=== PATIENT | male | born 1980 | race Caucasian/White ===

== ENCOUNTER → 2016-11-06 | Outpatient (CLI) | payer BC ==
[~2016-11-06] MED LIST: CYCL10TA9 PO; NAPR550T PO; OXYC1TAB87 PO
--- NOTE | 2016-11-06 12:47 | Diagnostic Imaging Report ---
INDICATION: Left wrist pain. 3 views of the left wrist show no fracture, dislocation, or other acute abnormalities. IMPRESSION: Negative left wrist. Dictated by: Dictated on workstation # [id number]
== END ==
LOC: RAD 10:42
PROVIDERS: ATTEND Nurse Practitioner
DX: M25.532 Pain in left wrist (principal)
CPT/HCPCS: 73110

== ENCOUNTER → 2017-03-13 | Outpatient (CLI) | payer BC ==
--- NOTE | 2017-03-13 18:10 | Diagnostic Imaging Report ---
INDICATION: Injury to right forearm. EXAMINATION: AP and lateral views of the right forearm were obtained. FINDINGS: No fracture or acute bony abnormality is seen. IMPRESSION: Negative right forearm. Report was called to Lauren Tapia APRN at 6:06 p.m., by luis (for ) with message left on her voice mail. Dictated by: Dictated on workstation # [id number]
== END ==
LOC: RAD 17:39
PROVIDERS: ATTEND Nurse Practitioner Family
DX: S59.911A Unspecified injury of right forearm, initial encounter (principal)
CPT/HCPCS: 73090

== ENCOUNTER → 2021-03-19 | Outpatient (CLI) | payer BC | LOC: LABNPT 07:24 | PROVIDERS: ATTEND Internal Medicine | DX: R51.9 Headache, unspecified (principal); R53.83 Other fatigue; R19.7 Diarrhea, unspecified; Z20.822 Contact with and (suspected) exposure to COVID-19 | CPT/HCPCS: 87635 ==

== ENCOUNTER 2022-01-27 08:05 | Emergency (ER) | payer BC ==
[~2022-01-27] VITALS: Ht 175 cm; Wt 100.0 kg
--- NOTE | 2022-01-27 08:36 | ED GU-Male ---
General Chief Complaint: Abdominal/GI Problems Stated Complaint: LT SIDE PAIN Nursing Triage Note: PT STATES DIARRHEA AND STOMACH FLU LIKE SS FOR A COUPLE DAYS, THIS MORNING PAIN IN LT SIDE DOWN TO HIS GROIN. LOOSE STOOL THIS MORNING BUT NO URINE, DENIES URINARY SYMPTOMS. VOMITED THIS MORNING FROM THE PAIN Source: patient Exam Limitations: no limitations (MARISABEL RENTERIA) History of Present Illness Date Seen by Provider: Jan 27, 2022 Time Seen by Provider: 08:31 Initial Comments Patient is a 41 y/o M with history of cholecystectomy who presents to the ER this morning with severe left flank pain onset this morning. He reports he began having sharp constant left right flank and back pain this morning at work. He states he was walking when he almost collapsed due to the pain. He rates the pain at 10/10 and says it radiates into his left groin area. Also reports less frequent urination. Patient reports having a headache and left ear pain for the last 3-4 days. He also reports 1 episode of diarrhea last night. States he was nauseous earlier today and had 1 episode of emesis. Reports many people at work have Influenza flu. Timing/Duration: this morning Severity/Quality: severe Location: left flank Radiation: groin Modifying Factors: Improves With Movement Associated Symptoms: fever/chills, nausea/vomiting (MARISABEL RENTERIA) Allergies and Home Medications Allergies Coded Allergies: Cefaclor (Verified Allergy, Intermediate, HIVES, 01/27/13) Patient Home Medication List Home Medication List Reviewed: Yes (CARLOS ENRIQUE RENTERIAA) Hydrocodone/Acetaminophen (Hydrocodone-Acetamin 5-325 mg) 5 Mg-325 Mg Tablet, 1 TAB PO Q6H PRN for PAIN-MODERATE (5-7) Prescribed by: RORO CONNOLLY on 01/27/22 1056 Oxycodone Hcl/Acetaminophen (Endocet) 1 Tab Tablet, 0 TAB PO Q4H PRN for PAIN Prescribed by: GERMAN MIRANDA on 02/09/13 1600 Tamsulosin HCl (Flomax) 0.4 Mg Cap, 0.4 MG PO HS Prescribed by: RORO CONNOLLY on 01/27/22 1055 Review of Systems Review of Systems Constitutional: chills; No fever EENTM: ear pain (left ) Respiratory: No cough, No short of breath Gastrointestinal: diarrhea, nausea, vomiting Genitourinary: frequency (less frequent), flank pain (left) Psychiatric/Neurological: Headache ([facility],[place]) Past Rbzoadc-Hxdobv-Yhviqe Hx Patient Social History Tobacco Use?: Yes Tobacco type used: Cigarettes Smoking Status: Current Everyday Smoker Substance use?: No Alcohol Use?: Yes Alcohol type: Beer ([facility],[place]) Immunizations Up To Date Second COVID19 Vaccination Narayan: YES ([facility],[place]) Past Medical History Surgery/Hospitalization HX: IBS, GALLBLADDER Reproductive Disorders: No Sexually Transmitted Disease: No Gastroesophageal Reflux, Irritable Bowel ([facility],[place]) Physical Exam Vital Signs Vital Signs - First Documented 01/27/22 08:10 Temp 36.0 Pulse 90 Resp 20 B/P (MAP) 152/105 (121) Pulse Ox 97 O2 Delivery Room Air (RORO CONNOLLY MD) Vital Signs Capillary Refill : Less Than 3 Seconds ([facility]) Height, Weight, BMI Height: '" Weight: 198lbs. oz. 89.508980ub; 32.00 BMI Method:Stated General Appearance: WD/WN, moderate distress (patient is writhing around on bed, unable to lie still at all) Cardiovascular: regular rate, rhythm, no murmur Respiratory: chest non-tender, lungs clear, normal breath sounds, no respiratory distress, no accessory muscle use Back: CVA tenderness (L) (positive Dayday's sign) Skin: normal color, warm/dry Lymphatic: no adenopathy (cervical) ([facility],[place]) Progress/Results/Core Measures Suspected Sepsis SIRS Temperature: Pulse: 90 Respiratory Rate: 20 Blood Pressure 152 /105 Mean: 121 ([facility],[place]) Results/Orders Lab Results Laboratory Tests Test 01/27/22 08:15 01/27/22 09:42 01/27/22 10:05 Range/Units Sodium Level 139 135-145 MMOL/L Potassium Level 3.8 3.6-5.0 MMOL/L Chloride Level 108 H 98-107 MMOL/L Carbon Dioxide Level 21 21-32 MMOL/L Anion Gap 10 5-14 MMOL/L Blood Urea Nitrogen 13 7-18 MG/DL Creatinine 1.06 0.60-1.30 MG/DL Estimat Glomerular Filtration Rate 90 BUN/Creatinine Ratio 12 Glucose Level 173 H 70-105 MG/DL Calcium Level 9.0 8.5-10.1 MG/DL Urine Color YELLOW Urine Clarity CLEAR Urine pH 5.0 5-9 Urine Specific Corea >=1.030 1.016-1.022 Urine Protein TRACE H NEGATIVE Urine Glucose (UA) NEGATIVE NEGATIVE Urine Ketones NEGATIVE NEGATIVE Urine Nitrite NEGATIVE NEGATIVE Urine Bilirubin NEGATIVE NEGATIVE Urine Urobilinogen 0.2 < = 1.0 MG/DL Urine Leukocyte Esterase NEGATIVE NEGATIVE Urine RBC (Auto) 3+ H NEGATIVE Urine RBC 25-50 H /HPF Urine WBC NONE /HPF Urine Squamous Epithelial Cells NONE /HPF Urine Crystals NONE /LPF Urine Bacteria NEGATIVE /HPF Urine Casts NONE /LPF Urine Mucus MODERATE H /LPF Urine Culture Indicated NO Influenza Type A (RT-PCR) Not Detected Not Detecte Influenza Type B (RT-PCR) Not Detected Not Detecte (RORO CONNOLLY MD) My Orders Orders - RORO CONNOLLY MD Ed Iv/Invasive Line Start (01/27/22 08:46) Ketorolac Injection (Toradol Injection) (01/27/22 09:00) Ondansetron Injection (Zofran Injectio (01/27/22 09:00) Morphine Injection (Morphine Injection (01/27/22 08:46) Basic Metabolic Panel (01/27/22 08:46) Ua Culture If Indicated (01/27/22 08:46) Influenza A And B By Pcr (01/27/22 08:48) Abdomen/Kub 1view (01/27/22 08:48) Ct Abd/Pelvis Wo(Kidney Stone) (01/27/22 08:48) Ns Iv 1000 Ml (Sodium Chloride 0.9%) (01/27/22 09:00) (RORO CONNOLLY MD) Medications Given in ED (RORO CONNOLLY MD) Vital Signs/I&O 01/27/22 01/27/22 01/27/22 01/27/22 08:10 09:05 09:05 11:03 Temp 36.0 36.0 36.0 36.0 Pulse 90 79 Resp 20 20 B/P (MAP) 152/105 (121) 114/73 Pulse Ox 97 97 O2 Delivery Room Air Room Air (RORO CONNOLLY MD) Vital Signs/I&O Capillary Refill : Less Than 3 Seconds (MARISABEL RENTERIA) Blood Pressure Mean: 121 Departure Impression Primary Impression: Kidney stone on left side Disposition: 01 HOME, SELF-CARE Condition: Stable Departure-Patient Inst. Decision time for Depature: 10:52 (RORO CONNOLLY MD) Referrals: DARRYL CATHERINE MD (PCP) Primary Care Physician Patient Instructions: Kidney Stone, Adult ED Add. Discharge Instructions: Drink plenty of fluids to stay well hydrated. I did write you for some hydrocodone, you can take 1 tablet every 6 hours as needed if you have any return of pain. If you develop fever, vomiting or other emergent, concerning symptoms, please come back for re-evaluation or follow up with your primary care doctor. Scripts Tamsulosin HCl (Flomax) 0.4 Mg Cap 0.4 MG PO HS for 7 Days, #7 CAP Prov: RORO CONNOLLY MD 01/27/22 Hydrocodone/Acetaminophen (Hydrocodone-Acetamin 5-325 mg) 5 Mg-325 Mg Tablet 1 TAB PO Q6H PRN for PAIN-MODERATE (5-7), #8 TAB Prov: RORO CONNOLLY MD 01/27/22 Verification and Attestation of Medical Student E/M Service A medical student performed and documented this service in my presence. I reviewed and verified all information documented by the medical student and made modifications to such information, when appropriate. I personally performed the physical exam and medical decision making. Roro Connolly, Jan 28, 2022,06:41 (RORO CONNOLLY MD) Copy Copies To 1: DARRYL CATHERINE MD, NATASHA Jan 27, 2022 08:36 RORO CONNOLLY MD Jan 27, 2022 10:56
[2022-01-27] MEDS ORDERED: morphine INJ 10 MG/ML 1ML (SYR OR VIAL) IVP STA (08:46)
[2022-01-27 09:00] LABS: CREATININE SERUM 1.06 MG/DL (0.60-1.30); POTASSIUM 3.8 MMOL/L (3.6-5.0)
[2022-01-27] MEDS ORDERED: ONDANSETRON 4 MG/2 ML (SDV) Z0FRAN IVP ONE (09:00)
[2022-01-27] MEDS ORDERED: NS IV 1000 ML 1,000 ML IV SCH (09:00)
[2022-01-27] MEDS ORDERED: KETOROLAC 30 MG/ML VIAL IVP ONE (09:00)
--- NOTE | 2022-01-27 09:40 | Diagnostic Imaging Report ---
Indication: Left flank pain. The bowel gas pattern normal. No radiographically apparent urinary tract calculi, no organomegaly or mass effect evident. Impression: Unremarkable abdominal radiographs. Dictated by: Dictated on workstation # [id number]
--- NOTE | 2022-01-27 09:41 | Diagnostic Imaging Report ---
PROCEDURE: CT urinary tract, rule out kidney stone. TECHNIQUE: Multiple contiguous axial images were obtained through the abdomen and pelvis without the use of intravenous contrast. Auto Exposure Controls were utilized during the CT exam to meet ALARA standards for radiation dose reduction. INDICATION: Diarrhea, flulike symptoms, now with left-sided pain and new vomiting. COMPARISON: I have no relevant comparison. FINDINGS: There is minimal ectasia in the left renal calyces and the left ureter, slightly more prominent than the right. Seen on axial image 166 series 2 is a punctate 1 mm calcific density at the expected level of the left ureterovesical junction, believed to be a tiny stone. There are some adjacent extra-ureteral phleboliths noted incidentally. No subcapsular or perinephric fluid collection. No urinoma. No additional urinary tract calculus is suspected. There is hepatic steatosis. The gallbladder is partly contracted. No visualized stone or biliary dilatation. The spleen, adrenals, and pancreas are unremarkable. The aorta is nonaneurysmal. The appendix is well visualized and normal. There is no diverticulitis. There is no small or large bowel wall thickening. No perienteric or pericolonic edema. There is no ascites. No lymphadenopathy. No acute bony pathology. The lung bases are unremarkable. IMPRESSION: 1. Punctate minute 1 mm calcification is believed to be at the left UVJ and results in minimal upstream caliectasis. 2. Fatty liver with no acute biliary or pancreatic pathology. 3. Nonobstructed and nonfocal small and large bowel. Dictated by: Dictated on workstation # [id number]
[2022-01-27 09:52] LABS: BILIRUBIN,URINE NEGATIVE (NEGATIVE); CLARITY,URINE CLEAR; COLOR,URINE YELLOW; GLUCOSE, URINE (UA) NEGATIVE (NEGATIVE); KETONES,URINE NEGATIVE (NEGATIVE); LEUKOCYTE ESTERASE ,URINE NEGATIVE (NEGATIVE); NITRITE,URINE NEGATIVE (NEGATIVE); PROTEIN,URINE TRACE (NEGATIVE)
[2022-01-27 10:14] LABS: BACTERIA,URINE NEGATIVE /HPF; RBC,URINE 25-50 /HPF
[2022-01-27] MEDS ORDERED: ACHD5005 PO (10:55)
[2022-01-27] MEDS ORDERED: TMSL.4C PO (10:55)
[2022-01-27 11:03] VITALS: BP 114/73
== END 2022-01-27 11:03 | disposition home or self-care (01) ==
LOC: EDUNIT# 08:05 → ER 08:08
DX: N20.0 Calculus of kidney (principal); R19.7 Diarrhea, unspecified; H92.02 Otalgia, left ear; F17.210 Nicotine dependence, cigarettes, uncomplicated
CPT/HCPCS: 36415; 74018; 74176; 80048; 81000

== ENCOUNTER → 2022-07-31 | Outpatient (CLI) | payer BC ==
[~2022-07-31] MED LIST changes: +ACHD5005 PO; +TMSL.4C PO
--- NOTE | 2022-07-31 12:17 | Diagnostic Imaging Report ---
CLINICAL INDICATIONS: Patient with right foot pain. EXAM: X-ray of the right foot, 3 views. COMPARISON: None. FINDINGS: There is no acute fracture or dislocation. There is spurring of the medial malleolar region inferiorly. Otherwise, there is no significant bone or joint abnormality. IMPRESSION: There is no acute fracture or dislocation. A telephone message regarding the impression of this exam was left for Dr. Dusty Blackman on 07/31/2022 at 1214 hours. Dictated by: Dictated on workstation # [id number]
== END ==
LOC: RAD 11:23
PROVIDERS: ATTEND Internal Medicine
DX: M79.671 Pain in right foot (principal)
CPT/HCPCS: 73630